=== PATIENT | female | born 1985 | race Caucasian/White ===

== ENCOUNTER 2021-03-16 13:03 | Day surgery (SDC) | payer BC, SELFPAY ==
[~2021-03-16] VITALS: Ht 154.9 cm; Wt 49.4 kg
[2021-03-16] MEDS ORDERED: BUPIVACAINE /EPINEPHRINE/PF 0.25% 30 ML VIAL INJ ONE (14:10)
[2021-03-16] MEDS ORDERED: ONDANSETRON HCL 4 MG/2 ML VIAL IVP ONE (14:10)
[2021-03-16] MEDS ORDERED: PROPOFOL 200MG/ 20ML VIAL (DIPRIVAN) IV ONE (14:10)
[2021-03-16] MEDS ORDERED: CEFAZOLIN 2 GM IVPB PREMIX 50 ML IV ONE (14:10)
[2021-03-16] MEDS ORDERED: NS 1000 ML IV.SOLN IV ONE (14:10)
[2021-03-16] MEDS ORDERED: LR 1,000 ML IV.SOLN IV ONE (14:10)
[2021-03-16] MEDS ORDERED: MIDAZOLAM HCL 5 MG/5 ML VIAL IVP ONE (14:10)
[2021-03-16] MEDS ORDERED: KETOROLAC TROMETHAMINE 30 MG VIAL IVP ONE (14:10)
[2021-03-16] MEDS ORDERED: SEVOFLURANE 15 MIN GAS INH ONE (14:10)
[2021-03-16] MEDS ORDERED: fentaNYL CITRATE/PF 100 MCG/2 ML AMP IVP ONE (14:10)
[2021-03-16] MEDS ORDERED: METOCLOPRAMIDE HCL 10 MG/2 ML VIAL IVP PRN (15:15)
[2021-03-16] MEDS ORDERED: fentaNYL CITRATE/PF 100 MCG/2 ML AMP IVP PRN ×2 (15:15)
[2021-03-16] MEDS ORDERED: ONDANSETRON HCL 4 MG/2 ML VIAL IVP PRN ×2 (15:15→16:00)
[2021-03-16 15:46] LABS: BILIRUBIN,URINE NEGATIVE (NEGATIVE); BLOOD, URINE 3+ (NEGATIVE); COLOR,URINE YELLOW (YELLOW); GLUCOSE,URINE NEGATIVE (NEGATIVE); KETONES,URINE NEGATIVE (NEGATIVE); LEUKOCYTE ESTERASE ,URINE NEGATIVE (NEGATIVE); NITRITE, URINE NEGATIVE (NEGATIVE); PH,URINE 7.5 (5.0-8.0); PROTEIN URINE 1+ (NEGATIVE); UROBILINOGEN,URINE 0.2 (0.2-1.0)
[2021-03-16] MEDS ORDERED: OXYCODONE/ACETAMINOPHEN 5-325 TABLET PO PRN ×2 (16:00)
[2021-03-16] MEDS ORDERED: SIMETHICONE 80 MG TAB.CHEW PO ONE (16:00)
[2021-03-16] MEDS ORDERED: HYDROcodone/ACETAMIN 5-325 MG TAB (NORCO/ VICODIN) PO PRN (16:00)
[2021-03-16 16:15] LABS: CLARITY/URINE HAZY (CLEAR)
[2021-03-16] MEDS ORDERED: ONDANSETRON HCL 4 MG/2 ML VIAL ONE (16:32)
[2021-03-16] MEDS ORDERED: SIMETHICONE 80 MG TAB.CHEW PO SCH (17:00)
[2021-03-16] MEDS ORDERED: SIMETHICONE 40 MG/0.6 ML ML PO SCH (17:00)
[2021-03-16] MEDS ORDERED: OXYCODONE/ACETAMINOPHEN 5-325 TABLET ONE (17:13)
[2021-03-16] MEDS ORDERED: HYDROcodone/ACETAMIN 5-325 MG TAB (NORCO/ VICODIN) ONE (17:19)
[2021-03-16 17:29] LABS: BACTERIA,URINE MANY /HPF (None Seen); RBC,URINE 50-80 /HPF (0-3)
[2021-03-16 17:30] LABS: MUCUS,URINE 3+ /LPF (None Seen)
[2021-03-16 18:06] VITALS: BP_SYST 100
== END 2021-03-16 18:00 | disposition home or self-care (01) ==
LOC: SDS 13:03 → SMU 14:09 → SDS 18:00
PROVIDERS: ATTEND Specialist
DX: O00.90 Unspecified ectopic pregnancy without intrauterine pregnancy (principal); Z88.0 Allergy status to penicillin; Z79.899 Other long term (current) drug therapy
CPT/HCPCS: 36415; 59150; 81000; 82962; 86886; 86900; 86901; 87086; 87426; 88305; C1727; C1782; J2405; J0690; J1885; J2250; J2704; J3010; J3490; J7030; J7120